=== PATIENT | male | born 1960 | race Two or more races ===

== ENCOUNTER 2023-02-26 19:13 | Emergency (ER) | payer MEDICARE, MEDICAID ==
[~2023-02-26] VITALS: Ht 185.4 cm; Wt 105.0 kg
[2023-02-26] MEDS ORDERED: cloNIDine HCL 0.1 MG TAB PO ONE (19:45)
[2023-02-26 21:57] VITALS: BP 155/90; PULSE 87; RESP 19; TEMP 98.4; O2SAT 97
== END 2023-02-26 21:59 | disposition home or self-care (01) ==
LOC: ER 19:13
DX: I10 Essential (primary) hypertension (principal); E78.5 Hyperlipidemia, unspecified